=== PATIENT | male | born 1985 | race Caucasian/White ===

== ENCOUNTER 2017-10-15 09:48 | Emergency (ER) | payer OTHER ==
[2017-10-15 10:30] LABS: BASO % 0.6 % (0.0-1.0); EOS # 0.3 10^3/uL (0.0-0.50); EOS % 6.2 % (0.0-3.0); HEMATOCRIT 47.8 % (42.0-52.0); HEMOGLOBIN 16.4 g/dl (13.5-17.5); IMMATURE GRANULOCYTE % 0.4 % (0-3.0); LYMPH # 1.2 10^3/uL (1.5-4.5); LYMPH % 23.3 % (24.0-44.0); MEAN CORPUSCULAR HEMOGLOBIN 30.7 pg (27.0-33.0); MEAN CORPUSCULAR HGB CONC 34.3 g/dl (32.0-36.5); MEAN CORPUSCULAR VOLUME 89.5 fl (80.0-96.0); MONO # 0.4 10^3/uL (0.0-0.8); MONO % 7.4 % (0.0-5.0); NEUTROPHILS # 3.2 10^3/uL (1.8-7.7); NEUTROPHILS % 62.1 % (36.0-66.0); PLATELET COUNT, AUTOMATED 170 10^3/uL (150-450); RED BLOOD COUNT 5.34 10^6/uL (4.30-6.10); RED CELL DISTRIBUTION WIDTH 13.1 % (11.5-14.5); WHITE BLOOD COUNT 5.2 10^3/uL (4.0-10.0)
[2017-10-15 10:41] LABS: KETONE, URINE AUTO RFX NEGATIVE (NEGATIVE); LEUKOCYTE ESTERASE UR AUTO RFX NEGATIVE (NEGATIVE); MUCUS, URINE RFX SMALL (NEGATIVE); NITRITE, URINE AUTO RFX NEGATIVE (NEGATIVE); RBC, URINE AUTO RFX 3 /HPF (0-3); SPECIFIC GRAVITY UR AUTO RFX 1.015 (1.002-1.035); SQUAM EPITHELIAL CELL UR AURFX 0 /HPF (0-6); WBC, URINE AUTO RFX 1 /HPF (0-3)
[2017-10-15 10:47] LABS: ALBUMIN 4.7 GM/DL (3.2-5.2); ALBUMIN/GLOBULIN RATIO 1.24 (1.00-1.93); ALKALINE PHOSPHATASE 64 U/L (45-117); ALT/SGPT 35 U/L (12-78); AMYLASE 49 U/L (25-115); ANION GAP 8 MEQ/L (8-16); AST/SGOT 37 U/L (7-37); BILIRUBIN,TOTAL 0.7 MG/DL (0.2-1.0); BLOOD UREA NITROGEN 11 MG/DL (7-18); C REACTIVE PROTEIN QUANTITATIV < 0.30 MG/DL (0.00-0.30); CALCIUM LEVEL 9.3 MG/DL (8.5-10.1); CARBON DIOXIDE LEVEL 29 MEQ/L (21-32); CHLORIDE LEVEL 102 MEQ/L (98-107); CREATININE FOR GFR 0.86 MG/DL (0.70-1.30); GLOMERULAR FILTRATION RATE > 60.0 (>60); GLUCOSE, FASTING 91 MG/DL (70-100); LIPASE 211 U/L (73-393); POTASSIUM SERUM 4.4 MEQ/L (3.5-5.1); SODIUM LEVEL 139 MEQ/L (136-145); TOTAL PROTEIN 8.5 GM/DL (6.4-8.2)
[2017-10-15] MEDS: KETOROLAC 30 MG/ML VIAL (J1885) IV (10:51)
[2017-10-15] MEDS: NS 1,000 ML IV (10:51)
[2017-10-15] MEDS: GASTROGRAFIN SOLUTION 30ML PO ×2 (10:51→11:20)
[2017-10-15] MEDS: ONDANSETRON 4MG/2ML VIAL (J2405) IV (10:51)
[2017-10-15] MEDS ORDERED: ISOVUE-370 76% 100ML VIAL (Q9967) As Ordered (12:04)
[2017-10-15] MEDS: METOCLOPRAMIDE INJ 10MG/2ML VIAL (J2765) IV (13:01)
[2017-10-15] MEDS: MORPHINE 4 MG/ML 1ML VIAL/SYRINGE (J2270) IV (13:08)
[2017-10-15] MEDS: diphenhydrAMINE INJ 50MG/ML VIAL (J1200) IV (13:11)
== END 2017-10-15 14:33 | disposition home or self-care (01) ==
LOC: M ED 09:48
DX: R10.9 Unspecified abdominal pain (principal); T50.B95A Adverse effect of other viral vaccines, initial encounter; Z87.442 Personal history of urinary calculi
CPT/HCPCS: J2270

== ENCOUNTER 2019-09-01 16:25 | Emergency (ER) | payer OTHER ==
[~2019-09-01] VITALS: Ht 188 cm; Wt 88.6 kg
[~2019-09-01 16:25] MED LIST: KETO10TAB PO; ZOFR4TAB14 PO
[2019-09-01 17:29] LABS: HEMATOCRIT 40.2 % (42.0-52.0); HEMOGLOBIN 14.2 g/dl (13.5-17.5); MEAN CORPUSCULAR HGB CONC 35.3 g/dl (32.0-36.5); MEAN CORPUSCULAR VOLUME 90.5 fl (80.0-96.0); PLATELET COUNT, AUTOMATED 158 10^3/uL (150-450); RED BLOOD COUNT 4.44 10^6/uL (4.30-6.10); WHITE BLOOD COUNT 5.9 10^3/uL (4.0-10.0)
[2019-09-01 17:52] LABS: AMPHETAMINES LEVEL URINE NEGATIVE (NEGATIVE); BARBITURATES URINE NEGATIVE (NEGATIVE); BENZODIAZEPINES URINE NEGATIVE (NEGATIVE); CANNABINOIDS URINE NEGATIVE (NEGATIVE); COCAINE METABOLITE URINE NEGATIVE (NEGATIVE); METHADONE URINE NEGATIVE (NEGATIVE); OPIATES URINE NEGATIVE (NEGATIVE); PHENCYCLIDINE URINE NEGATIVE (NEGATIVE)
[2019-09-01 18:11] LABS: ACETAMINOPHEN LEVEL < 2.0 UG/ML (10.0-30.0); ALBUMIN 3.5 GM/DL (3.2-5.2); ALT/SGPT 25 U/L (12-78); BILIRUBIN,DIRECT 0.3 MG/DL (0.0-0.2); BLOOD UREA NITROGEN 8 MG/DL (7-18); CALCIUM LEVEL 7.8 MG/DL (8.5-10.1); CARBON DIOXIDE LEVEL 26 MEQ/L (21-32); CHLORIDE LEVEL 108 MEQ/L (98-107); CREATININE FOR GFR 0.91 MG/DL (0.70-1.30); ETHYL ALCOHOL (ETHANOL) < 0.003 % (0.000-0.010); GLOMERULAR FILTRATION RATE > 60.0 (>60); GLUCOSE, FASTING 99 MG/DL (70-100); SALICYLATE LEVEL < 1.7 MG/DL (5.0-30.0); SODIUM LEVEL 139 MEQ/L (136-145); THYROID STIMULATING HORMONE 0.534 uIU/ML (0.358-3.740); TOTAL PROTEIN 6.9 GM/DL (6.4-8.2)
[2019-09-01] MEDS ORDERED: ACETAMINOPHEN 500 MG TAB PO ONE (19:30)
[2019-09-01] MEDS ORDERED: NICOTINE 21MG/24HR 1 EA TRANSDERMAL TD ONE (21:30)
[2019-09-02 08:28] VITALS: BP 114/61
== END 2019-09-02 08:30 ==
LOC: M ED 16:25
DX: F33.9 Major depressive disorder, recurrent, unspecified (principal); T14.91XA Suicide attempt, initial encounter; X83.8XXA Intentional self-harm by other specified means, initial encounter; Y92.89 Other specified places as the place of occurrence of the external cause
CPT/HCPCS: 36415; 80048; 80076; 80307; 84443; 85027; 87486; 87581; 87633; 87798; 99285; G0480